=== PATIENT | female | born 1970 ===

== ENCOUNTER 2017-07-09 05:21 | Inpatient (IN) | payer OTHER ==
[~2017-07-09] VITALS: Ht 170.2 cm; Wt 64.9 kg
[2017-07-09] VITALS (9 sets, daily range): BP systolic 96–137; BP diastolic 61–80
[~2017-07-09 05:21] MED LIST: NKM
[2017-07-09] MEDS ORDERED: fentaNYL 100 mcg/2 mL IV ONE (06:39)
[2017-07-09] MEDS ORDERED: Sugammadex Sodium 200mg/2ml vial IV ONE (06:40)
[2017-07-09] MEDS ORDERED: Lidocaine 1% MPF 10mg/ml 5ml ONE (06:40)
[2017-07-09] MEDS ORDERED: Dexamethasone 4mg/ml vial ONE (06:41)
[2017-07-09] MEDS ORDERED: Zemuron 50mg/5ml Inj IV ONE (06:41)
[2017-07-09] MEDS ORDERED: Propofol 200mg/20ml IV ONE (06:41)
[2017-07-09] MEDS ORDERED: EPINEPHrine 1mg/1ml Amp ONE (06:43)
[2017-07-09] MEDS ORDERED: Bupivacaine 0.5% Inj 30 ml vial INJ ONE (06:44)
[2017-07-09] MEDS ORDERED: Vancomycin 1gm inj IVPB ONE (06:44)
[2017-07-09] MEDS ORDERED: Thrombin 5000 units TOPIC ONE (06:44)
[2017-07-09] MEDS ORDERED: Ropivacaine 5mg/ml Vial 30ml INJ ONE (06:44)
[2017-07-09] MEDS ORDERED: Bacitracin 50000 Units Vial ONE (06:45)
[2017-07-09] MEDS ORDERED: Ketamine 500mg Inj ONE (06:51)
[2017-07-09] MEDS ORDERED: Propofol 1,000mg/ 100ml btl IV ONE (07:00)
[2017-07-09] MEDS ORDERED: NS Irrig 1000ml ONE (07:00)
[2017-07-09] MEDS ORDERED: LR 1000ml ONE (07:00)
[2017-07-09] MEDS ORDERED: ceFAZolin sod 2 GM in D5W 110 ML IVPB ONE (07:00)
[2017-07-09] MEDS ORDERED: Sterile Water Irrig 1000ml IRRIG ONE (07:00)
--- NOTE | 2017-07-09 07:12 | Anethesia Preoperative Eval ---
Anesthesia Pre-op PMH/ROS General Date of Evaluation: Jul 09, 2017 Time of Evaluation: 06:30 Anesthesiologist: ASA Score: ASA 1 Mallampati Score Class I : Soft palate, uvula, fauces, pillars visible Class II: Soft palate, uvula, fauces visible Class III: Soft palate, base of uvula visible Class IV: Only hard plate visible Mallampati Classification: Class I Surgeon: angel Diagnosis: back pain Surgical Procedure: left L4-5,L5-S1 hemilaminectomy, foraminectomy, decompression and microdisc Anesthesia History: none Family History: no anesthesia problems Allergies: Coded Allergies: No Known Allergies (Unverified , 07/06/17) Past Medical History Cardiovascular: Denies: HTN, CAD, CT, valve dz, arrhythmia, other Pulmonary: Denies: asthma, COPD, DHIRAJ, other Gastrointestinal/Genitourinary: Denies: GERD, CRI, ESRD, other Neurologic/Psychiatric: Denies: dementia, CVA, depression/anxiety, TIA, other Endocrine: Denies: DM, hypothyroidism, steroids, other HEENT: Denies: cataract (L), cataract (R), glaucoma, [place] (L[place] (R), other Hematology/Immune: Denies: anemia, DVT, bleeding disorder, other Musculoskeletal/Integumentary: Denies: OA, RA, DJD, DDD, edema, other PSxH Narrative: c/s x 2, tumor removed from pelvis Anesthesia Pre-op Phys. Exam Physician Exam Last Vital Signs Date Time Temp Pulse Resp B/P (MAP) Pulse Ox O2 Delivery O2 Flow Rate FiO2 07/09/17 06:00 97.9 90 20 137/80 99 Room Air 97.9 Constitutional: NAD Cardiovascular: RRR Respiratory: CTA Gastrointestinal: S/NT/ND Airway Exam Mallampati Score: Class I MO: full ROM: full Teeth: intact Dentures: no upper, no lower Anesthesia Pre-op A/P Labs Urine Test Test 07/09/17 05:35 Urine HCG, Qualitative Negative (NEGATIVE) Risk Assessment & Plan Assessment: asa 1, okay to proced Plan: ETGA Status Change Before Surgery: No Pre-Antibiotics Drug: ancef 2 grams Given Within 1 Hr of Incision: Yes Time Given: 07:45 Tiffanie Gutierrez M.D. Jul 09, 2017 07:12
--- NOTE | 2017-07-09 07:19 | Pre-Procedure Note/Attestation ---
Pre-Procedure Note/Attestation Complete Prior to Procedure Planned Procedure: right Procedure Narrative: Right sided L45 and L5S1 hemilaminotomy foraminotomy microdiscectomy Indications for Procedure Pre-Operative Diagnosis: Right sided L45 and L5S1 hnp Attestation I attest that I discussed the nature of the procedure; its benefits; risks and complications; and alternatives (and the risks and benefits of such alternatives ), prior to the procedure, with the patient (or the patient's legal communications representative). I attest that, if there was a reasonable possibility of needing a blood transfusion, the patient (or the patient's legal communications representative) was given the [place] [employer] [facility] standardized written summary, pursuant to the Jaden Eldred Blood Safety Act ([place] Health and Safety Code # 1645, as amended). I attest that I re-evaluated the patient just prior to the surgery and that there has been no change in the patient's H&P, except as documented below: Yeison Cummings MD Jul 09, 2017 07:19
[2017-07-09] MEDS ORDERED: Metoclopramide 10mg/2ml Inj IVP PRN (07:30)
[2017-07-09] MEDS ORDERED: Norco 5mg/325mg tab ORAL PRN (07:30)
[2017-07-09] MEDS ORDERED: Milk of Magnesia 30ml Ud ORAL PRN (07:30)
[2017-07-09] MEDS ORDERED: Morphine Sulfate 4mg/ml Inj SUBQ PRN ×2 (07:30)
[2017-07-09] MEDS ORDERED: HYDROcodone/Acetamin 7.5/325 tab ORAL PRN ×2 (07:30)
[2017-07-09] MEDS ORDERED: Chloraseptic Spray 20mL Bottle ORAL PRN (07:30)
[2017-07-09] MEDS ORDERED: Naloxone 0.4mg/ml Inj IVP PRN (07:30)
[2017-07-09] MEDS ORDERED: Ketorolac 30mg Inj ONE (08:27)
--- NOTE | 2017-07-09 09:28 | Immediate Post-Op Evaluation ---
Immediate Post-Op Evalulation Immediate Post-Op Evalulation Procedure: left L4-5, L5-S1 dat laminectomy, foraminectomy, decompression & microdisc Date of Evaluation: Jul 09, 2017 Time of Evaluation: 09:16 IV Fluids: LR 600ml Blood Products: 0 Estimated Blood Loss: 15ml Urinary Output: 400ml Blood Pressure Systolic: 104 Blood Pressure Diastolic: 61 Pulse Rate: 107 Respiratory Rate: 16 O2 Sat by Pulse Oximetry: 100 Temperature (Fahrenheit): 97.8 Pain Score (1-10): 0 Nausea: No Vomiting: No Complications none Patient Status: awake, patent, none Hydration Status: adequate Drug: ancef 2 grams Given Within 1 Hr of Incision: No Time Given: 07:45 Tiffanie Gutierrez M.D. Jul 09, 2017 09:28
[2017-07-09] MEDS ORDERED: DiphenhydrAMINE 50mg/ml Inj IVP PRN (09:45)
[2017-07-09] MEDS ORDERED: LR 1000ml 1,000 ML IVLG SCH (09:46)
[2017-07-09] MEDS: fentaNYL 100 mcg/2 mL IV PRN ×2 (09:51→10:01)
--- NOTE | 2017-07-09 10:02 | 48 Hour Post Anesthesia Eval ---
Post Anesthesia Evaluation Procedure: left L4-5, L5-S1 dat laminectomy, foraminectomy, decompression & microdisc Date of Evaluation: Jul 09, 2017 Time of Evaluation: 09:45 Blood Pressure Systolic: 108 0: 62 Pulse Rate: 103 Respiratory Rate: 18 Temperature (Fahrenheit): 97.8 O2 Sat by Pulse Oximetry: 99 Airway: patent Nausea: No Vomiting: No Pain Intensity: 0 Hydration Status: adequate Mental Status/LOC: patient returned to baseline Post-Anesthesia Complications: none Follow-up care needed: ready to discharge Tiffanie Gutierrez M.D. Jul 09, 2017 10:02
[2017-07-09] MEDS: Docusate 100mg cap ORAL SCH ×2 (12:00→18:41)
[2017-07-09] MEDS: NS w/KCl 20mEq 1,000 ML IV SCH ×2 (12:55→21:30)
[2017-07-09] MEDS: Dexamethasone 4mg/ml vial IVP SCH ×3 (12:56→23:58)
[2017-07-09] MEDS ORDERED: ceFAZolin sod 1 GM in D5W 55 ML IV SCH (14:00)
[2017-07-09] MEDS: ceFAZolin sod 1 GM in D5W 110 ML IV SCH ×2 (14:29→21:30)
--- NOTE | 2017-07-09 17:16 | Diagnostic Imaging Report ---
Indication: Back pain Comparison: None Findings: Single fluoroscopic views of the lumbar spine were obtained. Localization image showing instrument posterior to the L4-5 disc. IMPRESSION: Intraoperative imaging
--- NOTE | 2017-07-09 21:32 | Operative Note - Dictated ---
DATE OF OPERATION: 07/09/2017 SURGEON: Yeison Cummings MD DELIVERY RN SURGEON: AISLINN Tompkins ANESTHESIA: General endotracheal anesthesia. PREOPERATIVE DIAGNOSES: 1. Intractable back pain. 2. Intractable leg pain. 3. Worsening radiculopathy. 4. Weakness. 5. Herniated nucleus pulposus, L4-L5 herniation. 6. Neural foraminal stenosis, L5-S1. POSTOPERATIVE DIAGNOSES: 1. Intractable back pain. 2. Intractable leg pain. 3. Worsening radiculopathy. 4. Weakness. 5. Herniated nucleus pulposus, L4-L5 herniation. 6. Neural foraminal stenosis, L5-S1. PROCEDURES PERFORMED: 1. Right-sided L4-L5 and L5-S1 microdiscectomy. 2. L4-L5 and L5-S1 hemilaminotomy, foraminotomy and medial facetectomy. 3. L4-L5 and L5-S1 neural foraminotomy 4. Use of intraoperative microscope. 5. Supervision and interpretation of intraoperative fluoroscopy. 6. Supervision and interpretation of somatosensory-evoked potential and free running EMG monitoring. EBL: Less than 100 mL. COMPLICATIONS: None. INDICATIONS FOR THE PROCEDURE: The patient presents for intractable back pain and radiculopathy. The patient tried and failed a prolonged course of conservative management, including but not limited to chiropractic therapy, physical therapy, nonsteroidal anti-inflammatory drugs, medication, ice packs as well as epidural injection. Despite these therapies, the patient still developed recalcitrant pain and elected for definitive management in the form of right-sided L4-L5 and L5-S1 microdiscectomy, L4-L5 and L5-S1 hemilaminotomy, foraminotomy and medial facetectomy, and L4-L5 and L5-S1 neural foraminotomy through a transpedicular intraforaminal approach CONSENT: We had a long discussion with the patient regarding definitive surgical treatment options. The patient's MRI demonstrated herniated nucleus pulposus, L4-L5 with herniation and neural foraminal stenosis, L5-S1, and as a result, I felt the patient would benefit from the discectomy as well as neural foraminotomy at this level. We had a long discussion with the patient regarding the risks, alternatives, and benefits of surgery. Our description of the risks included a discussion in person as well as a signed consent which detailed all pertinent risks and the procedure itself. Briefly, our discussion included but was not limited to infection, bleeding, pseudarthrosis, spinal cord injury, neurovascular injury, dural tear, CSF leak, neuropathy, paralysis, permanent weakness/drop foot, paresthesias blindness, palsy and weakness. The patient understood there may be a need for revision surgery or additional procedures. Approach related complications including dysphonia, dysphagia, blindness, permanent vocal cord and neural injury, hematoma, swallowing and breathing difficulty. Medical complications including liver, kidney, shock, and cardiopulmonary failure. Anesthesia complications including , swelling. Damage to the musculature, larynx (voice injury or loss),esophagus (throat), trachea, blood vessels and muscles (muscular sprain) and lungs (pneumothorax) during this surgical procedure. Injury to deeper structures may be temporary or permanent. The patient understood these and elected to proceed. A written and verbal consent was given. We discussed the pros and cons of all the alternatives. We discussed the uncertainties associated with the decision. Afterwards I assessed the patients understanding and explored their preferences. All questions were answered and no guarantees were given. Medical clearance was obtained prior to surgery OPERATIVE FINDINGS: A broad-based disc herniation at L4-L5 and L5-S1 which encroached on the thecal sac and neural foraminal elements therein. This disc was acute in nature and not calcified. It was mobile and free floating and resected easily. There was also neural foraminal stenosis at L4-L5 and L5-S1. DESCRIPTION OF PROCEDURE: Under the benefit of general endotracheal anesthesia and with the assistance of the entire operative team, the patient was moved from the [place] onto the operative table in the prone position on a Camron frame. The head was secured and positioned appropriately. Bilateral arms were secured with Gel pads and foam and all bony prominences were padded. The bilateral lower extremity SCD and ZAC hose were placed for DVT prophylaxis. A surgical timeout was called which corroborated our planned procedure. Preoperative Antibiotics were administered within 30 minutes of the incision for prophylaxis. Decadron was given for preoperative steroids. Using lateral radiography, the operative levels were delineated. An incision was marked based on our interpretation of lateral radiography and afterwards the body was prepped and draped in the usual sterile manner. The family was notified that we were ready to commence surgery and were called in the waiting room hourly for updates An incision was based on our lateral fluoroscopic image to center the incision at the L5-S1 interspace. The wound was prepped and draped in the usual sterile fashion. Using a scalpel a midline incision was taken down through the skin and subcutaneous tissues until the overlying hemilamina of L4-L5 and L5-S1 were visualized. Next, using meticulous hemostasis, hemilaminotomies were dissected and retractors were placed. Using a [employer] dental, we confirmed placement at the L4-L5 and L5-S1 interspace. We next turned our attention to our decompression. A standard hemilaminotomy foraminotomy medial facetectomy was performed at each level in standard fashion using a Midas-Ye type AM8 drill bit, straight and angled curettage, and [place] 4 rongeurs until the lateral thecal sac margin and traversing nerve root was visualized. All remainders of the ligamentum flavum and lateral bony margins were resected in total with angled curettage and [place] 4 rongeurs until the lateral thecal sac margin and traversing nerve root was visualized and decompressed. We next turned our attention toward our L4-L5 and L5-S1 microdiscectomy on the L4-L5 and L5-S1 side. A [place] 4 was used to gently mobilize the thecal sac medially and this was held retracted with a bayonetted nerve root retractor. It was at this point that we noted a large broad-based disc protrusion with encroachment dorsally on the thecal sac neural foraminal contents. A bayonet and nerve root retractor was then placed carefully to retract the thecal sac and a discectomy was performed using a combination of a long handled 15 blade scalpel, downgoing and straight pituitaries and downgoing curettage. Afterward the disc space was irrigated twice with 20 mL of antibiotic-impregnated saline. All loose and free-floating disc fragments were carefully resected with a narrow pituitary. Having been satisfied with our decompression after our discectomy of all neural elements, we next turned our attention to our neural foraminoplasty/foraminotomy. This allowed for re-creation of the neural foraminal arch at L4-L5 and L5-S1. Afterwards, hemostasis was obtained with 60 mL of antibiotic-impregnated saline followed by FloSeal and Gelfoam. After sponge and needle count were found to be correct, we next turned our attention to closure. Closure consisted of 1-0 Vicryl in standard interrupted fashion. Zosyn was placed deep to the fascia and superficial to the fascia for antibiotic prophylaxis. Skin closure was performed with 2-0 Vicryl in interrupted fashion followed by a running Monocryl for the skin. Final dressings consisted of Dermabond for the superficial skin, Telfa and Tegaderm. The patient tolerated the procedure well. The patient was extubated after the conclusion of surgery without incident. We discussed the findings of the surgery with the family upon completion of the case. At this point the patient will be transferred to the spine floor for further observation. Yeison Cummings M.D. DR: Greyson JOB#: [id number] CC: DHAVAL
[2017-07-10] VITALS: BP 95/55
--- NOTE | 2017-07-10 02:46 | Operative Note - Dictated ---
DATE OF OPERATION: 07/09/2017 BRIEF OPERATIVE NOTE PREOPERATIVE DIAGNOSIS: L4-L5 and L5-S1 disk herniation. PROCEDURES PERFORMED: Right-sided microdiscectomy, hemilaminotomy, foraminotomy of L4-L5 and L5-S1. SURGEON: Yeison Cummings M.D. MANAGER NEW PRODUCT: Mine Liriano COMPLICATIONS: None. ANESTHESIA: General endotracheal anesthesia. IV FLUIDS: INTRAOPERATIVE FINDINGS: Broad-based disk herniation at L4-L5 and L5-S1 on the right side. Yeison Cummings M.D. DR: Greyson JOB#: [id number] CC: DHAVAL
[2017-07-10 04:00] VITALS: BP 98/63
[2017-07-10] MEDS: ceFAZolin sod 1 GM in D5W 110 ML IV SCH (05:31)
[2017-07-10] MEDS: Dexamethasone 4mg/ml vial IVP SCH (05:35)
[2017-07-10 08:00] VITALS: BP 94/60
[2017-07-10] MEDS: NS w/KCl 20mEq 1,000 ML IV SCH (08:10)
[2017-07-10] MEDS: Docusate 100mg cap ORAL SCH (08:23)
[2017-07-10] MEDS ORDERED: NORCO 10-325 T1 EACH ORAL (09:34)
[2017-07-10] MEDS ORDERED: SOMA350 MG PO (09:35)
[2017-07-10 12:00] VITALS: BP 106/62
--- NOTE | 2017-07-10 16:16 | Discharge Summary ---
DATE OF ADMISSION: 07/09/2017 DATE OF DISCHARGE: 07/10/2017 DATE OF SURGERY: 07/09/2017 DATE OF DISCHARGE: 07/10/2017 PROCEDURE PERFORMED DURING ADMISSION: L4-L5 and L5-S1 right-sided microdiskectomy, hemilaminotomy, and foraminotomy. REASON FOR ADMISSION: L4-L5 and L5-S1 disk herniation. HOSPITAL COURSE/TREATMENT RENDERED: DISCHARGE PHYSICAL EXAM: 1. Patient was ambulating with and without the assistance of physical therapy 2. Prior to discharge home incision was clean and dry with minimal swelling 3. Follows commands 4. Alert and oriented 5. Monson discontinued, voiding 6. Incentive spirometer at bedside 7. IVF hep locked MOTOR: Demonstrates expected postoperative bulk and tone. Moves biceps, triceps, and deltoid musculature on command. Moves hip flexors, quadriceps, tibialis anterior, EHL, gastrocsoleus musculature on command as well. TREATMENT RENDERED: 1. Daily nursing care 2. Physical Therapy 3. Occupational Therapy 4. Intravenous medications 5. Oral medications 6. Daily postoperative examinations by Spine surgery team CONDITION OF PATIENT ON DISCHARGE: The condition on discharge is stable for discharge to home DISCHARGE INSTRUCTIONS: Our specific instructions relating to physical activity, medications diet and follow-up care are detailed in our standard operative folder and were given to this patient prior to surgery. We will however summarize these briefly as stated below. Regarding physical activity we would like the patient to limit their flexion, extension and rotation. We also require a limitation on their bending lifting and twisting. All medication has been called in prior to surgery to their pharmacy of choice. They can resume their regular diet once tolerated. We would like them to shower and limit soaking the wound in a tub/Jacuzzi/the ocean for a period of one month or until the incision is completely healed. We will have them follow up in our office in three weeks time for their regularly scheduled appointment. They understand to call our office tomorrow to schedule the time for their three week followup appointment. The patient will notify us should they experience any increase in the severity of pain, redness/swelling/ or drainage from their incision. Yeison Cummings M.D. DR: Greyson JOB#: [id number] CC:
== END 2017-07-10 14:20 | disposition home or self-care (01) | DRG 520 ==
LOC: SDSOVERFLO 05:21 → 3E 10:27
PROC: 0ST40ZZ Resection of Lumbosacral Disc, Open Approach (ICD-10-PCS; principal; 2017-07-09 07:00)
PROC: 0ST20ZZ Resection of Lumbar Vertebral Disc, Open Approach (ICD-10-PCS; principal; 2017-07-09 07:00)
DX: M51.16 Intervertebral disc disorders with radiculopathy, lumbar region (principal); M48.07 Spinal stenosis, lumbosacral region
CPT/HCPCS: 36415; 72020; 76000; 81025; 86850; 86900; 86901; 87081; J2405